=== PATIENT | female | born 1965 | race Caucasian/White ===

== ENCOUNTER 2024-06-04 09:40 | Outpatient (AMB) | payer OTHER, SELFPAY ==
--- NOTE | 2024-06-04 09:51 | A.OFFPC_ITS ---
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 Required: No Allergies No Known Allergies Allergy (Verified 06/04/24 09:51) Medication List - Last Reconciled 06/04/24 by Bridgette Del Valle MD atenolol mg PO DAILY glatiramer (Glatopa) mg subcut Tobacco use date assessed: 06/04/24 Dental Screening Dental Screen Date: 06/04/24 Did you have a dental visit in the last 12 months?: No Did you have a dental problem in the last 6 months where you did not have access to dental care?: No Was dental information given to patient?: Patient has dentist HPI HPI Comments History of Present Illness Details The patient is a 58 year old female with past medical history of hypertension, MS, elevated glucose presenting for reestablish care/follow up CV: on metoprolol 50mg daily for years switched to atenolol. She ran out of her medication in the transition between practices. She has been monitoring her BP at home off the medication and it has been 120s/80s, sometimes low 90s. No heaadches, chest pain. Interested in GLP MS: Following with Dr Alves. On Glatopa. 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 elevated LFTs in setting of norethindrone. Needs new [employer] Mammo ordered Colon cancer screening UTD ROS CONSTITUTIONAL: Denies weight loss, fever and chills. HEENT: Denies changes in vision and hearing. RESPIRATORY: Denies SOB and cough. CV: Denies palpitations and CP GI: Denies abdominal pain, nausea, vomiting and diarrhea. : Denies dysuria and urinary frequency. MSK: Denies new myalgia and joint pain. SKIN: Denies rash and pruritus. NEUROLOGICAL: Denies headache PSYCHIATRIC: Denies recent changes in mood. PHYSICAL EXAM: GENERAL: Alert and oriented x 3. NAD EYES: EOMI. Anicteric. HENT: Moist mucous membranes. No scleral icterus. No cervical lymphadenopathy. LUNGS: Clear to auscultation bilaterally. CARDIOVASCULAR: Regular rate and rhythm. No murmur. No JVD. ABDOMEN: Soft, non-tender +bs EXTREMITIES: No edema. Non-tender. SKIN: No rashes or lesions. Warm. NEUROLOGIC: No focal neurological deficits. CN II-XII grossly intact PSYCHIATRIC: Cooperative. Appropriate mood and affect [facility] Surgical History History of hysteroscopy H/O colonoscopy Hx of section Family History Mother HTN (hypertension) Father Lung cancer Diabetes Social History Housing: House Alcohol intake: current Patient Tobacco Use Status: Never used Tobacco e-Cigarette/Vaping Use: Never Used Second Hand Smoke Exposure: No Use of substances other than those prescribed or required for medical reasons: No service: No Current occupational status: employed Current occupation: [employer] Current occupational exposures/hazards: No Cognitive needs: No Hearing needs: No Vision needs: No Questionnaire PHQ-9 Over the last 2 weeks, how often have you been bothered by any of the following problems? 1. Little interest or pleasure in doing things: not at all 2. Feeling down, depressed, or hopeless: not at all 3. Trouble falling or staying asleep, or sleeping too much: not at all 4. Feeling tired or having little energy: not at all 5. Poor appetite or overeating: not at all 6. Feeling bad about yourself - or that you are a failure or have let yourself or your family down: not at all 7. Trouble concentrating on things, such as reading the newspaper or watching television: not at all 8. Moving or speaking so slowly that other people could have noticed. Or the opposite - being so fidgety or restless that you have been moving around a lot more than usual: not at all 9. Thoughts that you would be better off or of hurting yourself in some way: not at all Total score: 0 Depression Screening Interpretation: Negative Depression Screening Done: Yes 63021 - PHQ-9 Billing: Yes Source: Developed by Drs. Hair L. WinifredMeri martin, Nathan Meza and colleagues, with an educational gris from [employer]. Thrive Questionnaire Date Thrive assessed: 05/30/24 I am a: Patient What is your living situation today?: I have a steady place to live Within the past 12 months, did the food you bought not last and you didn't have the money to get more?: Never true Within the past 12 months, did you worry whether your food would run out before you got money to buy more?: Never true Do you have trouble paying for medicines?: No Do you have trouble getting transportation to medical appointments?: No Do you have trouble paying your heating and electricity bill?: No Do you have trouble taking care of your child, family member or friend?: No Do you have trouble with day-to-day activities such as bathing, preparing meals, shopping, managing finances, etc.?: No Are you currently unemployed and looking for a job?: No Are you interested in more education?: I choose not to answer this question Please select the resources that you would like help with: None Currently or been in a relationship where the following occur: No concerns reported THRIVE Score: 0 AUDIT C Alcohol Use Questionnaire (AUDIT-C) 1. How often do you have a drink containing alcohol?: 2-4 times a month 2. How many drinks containing alcohol do you have on a typical day when you are drinking?: 1 or 2 3. How often do you have six or more drinks on one occasion?: Never Total Score: 2 TITUS-7 AMB Questionnaire TITUS-7 Date TITUS - 7 assessed: 06/04/24 Feeling nervous, anxious, or on edge: 0 = Not at all Not being able to stop or control worryin = Not at all Worrying too much about different things: 0 = Not at all Trouble relaxin = Not at all Being so restless that it is hard to sit still: 0 = Not at all Becoming easily annoyed or irritable: 0 = Not at all Feeling afraid as if something awful might happen: 0 = Not at all Total TITUS-7 score (0-4 normal; 5-9 mild; 10-14 moderate; 15-21 severe): 0 Source: Developed by Meri Rivero Kurt Kroenke and colleagues, with an educational gris from [employer]. TITUS-7 Assessment Billing TITUS-7 Assessment Tool: TITUS-7 Assessment 94622 Physical exam (Primary Care) Vital Signs: Last Vital Signs Pulse 81 06/04/24 09:58 Resp 12 06/04/24 09:58 BP 132/84 06/04/24 09:58 Pulse Ox 95 06/04/24 09:58 Oxygen Delivery Method Room Air 06/04/24 09:58 BMI result Body Mass Index 31.5 Tobacco/Smoking Status: Tobacco use Status Tobacco use date assessed 06/04/24 06/04/24 10:01 Patient Tobacco Use Status Never used Tobacco 06/04/24 10:01 e-Cigarette/Vaping Use Never Used 06/04/24 10:01 PHQ-9: PHQ-9 Score PHQ-9: Total score 0 06/04/24 14:23 Depression Screening Interpretation: Negative Thrive Assessment: Date of Thrive Assessment Date Thrive assessed 05/30/24 06/04/24 09:55 Currently or been in a relationship where the following occur: No concerns reported Coding Level of Care Code Est Pt Level 5 (82391) Diagnoses Elevated glucose R73.09 Primary hypertension I10 Hypertension type: primary hypertension Additional Codes TITUS-7 Assessment Billing - TITUS-7 Assessment Tool: TITUS-7 Assessment 90184 ([id number]) PHQ-9 - 90461 - PHQ-9 Billing: Yes ([id number]) Time Spent (min) 50 Assessment & Plan Assessment & Plan (1) Elevated glucose: Code(s): R73.09 - Other abnormal glucose Category: Medical Plan: History of elevated glucose Weight gain Blood perssure is borderline-will try for FLP to aid weight loss. Hopefully she can avoid going back on custodial medications. She will do labs 3-6 months (2) Hypertension: Code(s): I10 - Essential (primary) hypertension Category: Medical Qualifiers: Hypertension type: primary hypertension Qualified Code(s): I10 - Essential (primary) hypertension Plan: Low salt diet Efforts toward weight loss Orders: Orders Comprehensive Met. Panel 06/04/24 R73.09 - Other abnormal glucose, Z13.0 - Encounter for screening for diseases of the blood and blood-forming organs and certain disorders involving the immune mechanism, Z13.220 - Encounter for screening for lipoid disorders, Z13.228 - Encounter for screening for other metabolic disorders MM screening mammo BI 06/04/24 Z12.31 - Encounter for screening mammogram for malignant neoplasm of breast Complete Blood Count Auto Diff 06/04/24 R73.09 - Other abnormal glucose, Z13.0 - Encounter for screening for diseases of the blood and blood-forming organs and certain disorders involving the immune mechanism, Z13.220 - Encounter for screening for lipoid disorders, Z13.228 - Encounter for screening for other metabolic disorders Lipid Panel 06/04/24 R73.09 - Other abnormal glucose, Z13.0 - Encounter for screening for diseases of the blood and blood-forming organs and certain disorders involving the immune mechanism, Z13.220 - Encounter for screening for lipoid disorders, Z13.228 - Encounter for screening for other metabolic disorders TSH reflex Free T4 06/04/24 R73.09 - Other abnormal glucose, Z13.0 - Encounter for screening for diseases of the blood and blood-forming organs and certain disorders involving the immune mechanism, Z13.220 - Encounter for screening for lipoid disorders, Z13.228 - Encounter for screening for other metabolic disorders Hemoglobin A1c 06/04/24 R73.09 - Other abnormal glucose, Z13.0 - Encounter for screening for diseases of the blood and blood-forming organs and certain disorders involving the immune mechanism, Z13.220 - Encounter for screening for lipoid disorders, Z13.228 - Encounter for screening for other metabolic disorders Referrals LEAD NETWORK ARCHITECT Referral D21.9 - Benign neoplasm of connective and other soft tissue, unspecified, Z01.419 - Encounter for gynecological examination (general) (dean ríos) without abnormal findings
[2024-06-04 09:58] VITALS: BP 132/84; PULSE 81; RESP 12; O2SAT 95; BMI 31.5
--- OUTSIDE RECORDS SUMMARY | 2024-06-04 10:59 | XMS_ITS | Data Portability ---
Author Organization [facility] [employer] Address [address] [place] [address] [place] [id number] Care Team Providers Care Silver Chaser Name Role Phone CORY HEBERT Primary Care Provider [phone] Assessment Encounter Date Assessment Date Assessment LastModified by Organization Details LastModified Time 12/01/2020 12/01/2020 IMPRESSION: Mult iple sclerosis, no relapses recently. Diagnosis following probable mild optic neuritis together with the 10 small lesions on brain MRI, including corpus callosum; and a new enhancing lesion November 2012 brain MRI provides definitive evidence for dissemination and time other evidence previously was Spring 2011 episode of sensory alteration under her right foot is the not specific but was very possibly a mild relapse. She remains satisfied with Copaxone injections daily. (Insurance would not allow her to switch to 3 times a week.) Brain MRI is unchanging (we were able to do this October 2015 as her insurance now covers brain MRI in this context of multiple sclerosis without charging a hefty co-pay.) I have offered brain MRI to assess for radiological progression in which case there can be consideration for changing to an alternative disease modifying medication. She declines, feeling that such investigation should be reserved for situations where she has clinical worsening. She continues to be aware of other options for medication, and oral options in particular: fingolimod, Aubagio, Tecfidera, that may be more convenient than shots. Today we discussed ocrelizumab, newer than the above. She again prefers Copaxone. BACK PAIN She is slouches just a little on the exam table where there is no backing to lean on. Neurological exam is otherwise robustly normal. She notices that she sometimes feels uncomfortable if she is sitting in a situation where there is no chairback. She just gets up and walks around. I wonder if this relates to the acute denervation seen in paraspinal muscles on needle EMG. I wonder if her back pain in part relates this to. 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 She will think about this. VITAMIN D: Primary care has checked vitamin D in 2018, it was good; she takes supplementation. In the context of multiple sclerosis, there is a tendency for it to be low and there is some emerging data that suggests this may correlate with some symptomaticity. Today she mentions that vitamin D monitoring by primary care revealed higher than normal results. She has not talked about it with primary care. I tell her that I see that sometimes and I am not concerned about it when it is mildly high. Although it is a fat soluble vitamin, I know of no worrisome issues for mild increased value if there is normal kidney function. I defer to primary care for any further assessment needed. EMG in November 2010 showed diffuse paraspinal muscle acute denervation, and a few small units. This is consistent with inflammatory systemic disease. Subsequent laboratory assays reveal impaired fasting glucose. While this is not diabetes, there is data in the literature that impaired fasting glucose, as well as glucose intolerance, has correlation with signs and symptoms of radiculoneuropathy such as these signs on needle EMG. Multiple sclerosis is an inflammatory disease itself, of course, but traditionally considered a central nervous system disease, not a systemic disease. However, inflammation of nerve root takeoff in the central nervous system from multiple sclerosis might also, theoretically, related to the needle EMG results, although this is not typical of findings multiple sclerosis. No further workup of needle EMG abnormalities is indicated. PLAN: Mildred Yuen December 01, 2020 Continue Copaxone shots daily for multiple sclerosis Stretch back before and after unusual physical activity or lifting heavy objects. Followup in 11 months, or earlier with new or concerning neurologic symptomatology mrossen Not available 12/01/2020 09:36:29 12/02/2021 12/02/2021 IMPRESSION: Mult iple sclerosis, no relapses recently. Diagnosis following probable mild optic neuritis together with the 10 small lesions on brain MRI, including corpus callosum; and a new enhancing lesion November 2012 brain MRI provides definitive evidence for dissemination and time other evidence previously was Spring 2011 episode of sensory alteration under her right foot is the not specific but was very possibly a mild relapse. She remains satisfied with Copaxone injections daily. (Insurance would not allow her to switch to 3 times a week.) Brain MRI is unchanging (we were able to do this October 2015 as her insurance now covers brain MRI in this context of multiple sclerosis without charging a hefty co-pay.) I have offered brain MRI to assess for radiological progression in which case there can be consideration for changing to an alternative disease modifying medication. She declines, feeling that such investigation should be reserved for situations where she has clinical worsening. She continues to be aware of other options for medication, and oral options in particular: fingolimod, Aubagio, Tecfidera, that may be more convenient than shots. Most recently we have discussed ocrelizumab In detail and she had the same opinion; She again prefers Copaxone. this was November 2020. We briefly discussed ocrelizumab again today. BACK PAIN November 2020: She is slouches just a little on the exam table where there is no backing to lean on. Neurological exam is otherwise robustly normal. She notices that she sometimes feels uncomfortable if she is sitting in a situation where there is no chairback. She just gets up and walks around. I wonder if this relates to the acute denervation seen in paraspinal muscles on needle EMG. I wonder if her back pain in part relates this to. 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 She will think about this. VITAMIN D: Primary care has checked vitamin D in 2018, it was good; she takes supplementation. In the context of multiple sclerosis, there is a tendency for it to be low and there is some emerging data that suggests this may correlate with some symptomaticity. Today she mentions that vitamin D monitoring by primary care revealed higher than normal results. She has not talked about it with primary care. I tell her that I see that sometimes and I am not concerned about it when it is mildly high. Although it is a fat soluble vitamin, I know of no worrisome issues for mild increased value if there is normal kidney function. I defer to primary care for any further assessment needed. EMG in November 2010 showed diffuse paraspinal muscle acute denervation, and a few small units. This is consistent with inflammatory systemic disease. Subsequent laboratory assays reveal impaired fasting glucose. While this is not diabetes, there is data in the literature that impaired fasting glucose, as well as glucose intolerance, has correlation with signs and symptoms of radiculoneuropathy such as these signs on needle EMG. Multiple sclerosis is an inflammatory disease itself, of course, but traditionally considered a central nervous system disease, not a systemic disease. However, inflammation of nerve root takeoff in the central nervous system from multiple sclerosis might also, theoretically, related to the needle EMG results, although this is not typical of findings multiple sclerosis. No further workup of needle EMG abnormalities is indicated. PLAN: Mildred Yuen December 02, 2021 Continue Copaxone shots daily for multiple sclerosis Stretch back before and after unusual physical activity or lifting heavy objects. Followup in 10 months, or earlier with new or concerning neurologic symptomatology mrossen Not available 12/02/2021 09:04:37 10/24/2022 10/24/2022 IMPRESSION: Mult iple sclerosis, no relapses recently. Diagnosis following probable mild optic neuritis together with the 10 small lesions on brain MRI, including corpus callosum; and a new enhancing lesion November 2012 brain MRI provides definitive evidence for dissemination and time other evidence previously was Spring 2011 episode of sensory alteration under her right foot is the not specific but was very possibly a mild relapse. She remains satisfied with Copaxone injections daily. (Insurance would not allow her to switch to 3 times a week.) Brain MRI is unchanging (we were able to do this October 2015 as her insurance now covers brain MRI in this context of multiple sclerosis without charging a hefty co-pay.) I have offered brain MRI to assess for radiological progression in which case there can be consideration for changing to an alternative disease modifying medication. She declines, feeling that such investigation should be reserved for situations where she has clinical worsening. She continues to be aware of other options for medication, and oral options in particular: Ocrevus, Aubagio, Tecfidera, that may be more convenient than shots. In paticular, most recently we have discussed ocrelizumab In detail and she had the same opinion; She again prefers Copaxone. this was December2021. BACK PAIN November 2020: She is slouches just a little on the exam table where there is no backing to lean on. Neurological exam is otherwise robustly normal. She notices that she sometimes feels uncomfortable if she is sitting in a situation where there is no chairback. She just gets up and walks around. I wonder if this relates to the acute denervation seen in paraspinal muscles on needle EMG. I wonder if her back pain in part relates this to. 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 She will think about this. VITAMIN D: Primary care has checked vitamin D in 2018, it was good; she takes supplementation. In the context of multiple sclerosis, there is a tendency for it to be low and there is some emerging data that suggests this may correlate with some symptomaticity. Today she mentions that vitamin D monitoring by primary care revealed higher than normal results. She has not talked about it with primary care. I tell her that I see that sometimes and I am not concerned about it when it is mildly high. Although it is a fat soluble vitamin, I know of no worrisome issues for mild increased value if there is normal kidney function. I defer to primary care for any further assessment needed. EMG in November 2010 showed diffuse paraspinal muscle acute denervation, and a few small units. This is consistent with inflammatory systemic disease. Subsequent laboratory assays reveal impaired fasting glucose. While this is not diabetes, there is data in the literature that impaired fasting glucose, as well as glucose intolerance, has correlation with signs and symptoms of radiculoneuropathy such as these signs on needle EMG. Multiple sclerosis is an inflammatory disease itself, of course, but traditionally considered a central nervous system disease, not a systemic disease. However, inflammation of nerve root takeoff in the central nervous system from multiple sclerosis might also, theoretically, related to the needle EMG results, although this is not typical of findings multiple sclerosis. No further workup of needle EMG abnormalities is indicated. PLAN: Mildred Yuen October 24, 2022 Continue Copaxone shots daily for multiple sclerosis Stretch back before and after unusual physical activity or lifting heavy objects. Followup in 10 months, or earlier with new or concerning neurologic symptomatology mrossen Not available 10/24/2022 08:16:26 10/03/2023 10/03/2023 IMPRESSION: Mult iple sclerosis, no relapses recently. Diagnosis following probable mild optic neuritis together with the 10 small lesions on brain MRI, including corpus callosum; and a new enhancing lesion November 2012 brain MRI provides definitive evidence for dissemination and time other evidence previously was Spring 2011 episode of sensory alteration under her right foot is the not specific but was very possibly a mild relapse. She remains satisfied with Copaxone injections daily. (Insurance would not allow her to switch to 3 times a week.) Brain MRI is unchanging (we were able to do this October 2015 as her insurance now covers brain MRI in this context of multiple sclerosis without charging a hefty co-pay.) I have offered brain MRI to assess for radiological progression in which case there can be consideration for changing to an alternative disease modifying medication. She has declined, feeling that such investigation should be reserved for situations where she has clinical worsening. She continues to be aware of other options for medication, and oral options in particular: Ocrevus, Aubagio, Tecfidera, that may be more convenient than shots. In patilar, most recently we have discussed ocrelizumab In detail and she had the same opinion; She again prefers Copaxone. this was December2021. PLAN: Mildred Yuen October 03, 2023 Continue Copaxone shots daily for multiple sclerosis Stretch back before and after unusual physical activity or lifting heavy objects. Followup in 11 months, or earlier with new or concerning neurologic symptomatology mrossen Not available 10/03/2023 17:40:57 Plan of Treatment Reminders Order Date Submit Date Provider Last Modified By Organization Details Last Modified Time Details Appointments FOLLOW UP EXT 2024 08:30A M Frank Alves MD PhD Not available Not available Not available Lab None recorded. Referral None recorded. Procedures None recorded. Surgeries None recorded. Imaging None recorded. Medication Orders Glatopa 20 mg/mL subcutane ous syringe 2023 024 [facility] [place], [address], 10/03/2023 17:29:48 Glatopa 20 mg/mL subcutane ous syringe 2022 023 [facility], [address] [place] [address] [place], [address], 10/24/2022 08:17:09 Glatopa 20 mg/mL subcutane ous syringe 2020 021 [facility], [address] [place], [address], 12/01/2020 09:19:21 Patient TargetsNo targets recorded. Patient Instructions Encounter Date Encounter Id Patient Instructions Last Modified By Organization Details Last Modified Time 12/01/2020 [id number] PREVIOUS DISCUSS IONS She has wondered about vaccinations causing multiple sclerosis. I told her this is not the case. dalila Not available 12/01/2020 09:31:52 12/02/2021 [id number] PREVIOUS DISCUSS IONS She has wondered about vaccinations causing multiple sclerosis. I told her this is not the case. BILLING Chronic condition with exacerbation; prescription medication management dalila Not available 12/02/2021 08:45:28 10/24/2022 [id number] PREVIOUS DISCUSS IONS She has wondered about vaccinations causing multiple sclerosis. I told her this is not the case. BILLING Discussion across issues of diagnoses and management and same day associated chart review and management greater than 50% greater than 30 minutes dalila Not available 10/24/2022 08:26:05 10/03/2023 [id number] PREVIOUS DISCUSS IONS She has wondered about vaccinations causing multiple sclerosis. I told her this is not the case. BACK PAIN November 2020: She is slouches just a little on the exam table where there is no backing to lean on. Neurological exam is otherwise robustly normal. She notices that she sometimes feels uncomfortable if she is sitting in a situation where there is no chairback. She just gets up and walks around. I wonder if this relates to the acute denervation seen in paraspinal muscles on needle EMG. I wonder if her back pain in part relates this to. 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 She will think about this. VITAMIN D: Primary care has checked vitamin D in 2018, it was good; she takes supplementation. In the context of multiple sclerosis, there is a tendency for it to be low and there is some emerging data that suggests this may correlate with some symptomaticity. Today she mentions that vitamin D monitoring by primary care revealed higher than normal results. She has not talked about it with primary care. I tell her that I see that sometimes and I am not concerned about it when it is mildly high. Although it is a fat soluble vitamin, I know of no worrisome issues for mild increased value if there is normal kidney function. I defer to primary care for any further assessment needed. EMG in November 2010 showed diffuse paraspinal muscle acute denervation, and a few small units. This is consistent with inflammatory systemic disease. Subsequent laboratory assays reveal impaired fasting glucose. While this is not diabetes, there is data in the literature that impaired fasting glucose, as well as glucose intolerance, has correlation with signs and symptoms of radiculoneuropathy such as these signs on needle EMG. Multiple sclerosis is an inflammatory disease itself, of course, but traditionally considered a central nervous system disease, not a systemic disease. However, inflammation of nerve root takeoff in the central nervous system from multiple sclerosis might also, theoretically, related to the needle EMG results, although this is not typical of findings multiple sclerosis. No further workup of needle EMG abnormalities is indicated. BILLING Discussion across issues of diagnoses and management and same day associated chart review and management greater than 50% greater than 30 minutes mrossen Not available 10/03/2023 17:40:37 Reason for Referral None Reported. Procedures Surgical History Date Name Laterality Status Provider Name and Address Organization Details Recorded Time 10/03/2023 DATA REVIEW completed Frank Alves MD [address] [place] [address] [place], [phone], [facility] 10/03/2023 17:22:48 10/24/2022 DATA REVIEW completed Frank Alves MD [address] [place] [address] [place], [phone], [facility] 10/24/2022 08:08:15 12/02/2021 DATA REVIEW completed Frank Alves MD [address] [place] [address] [place], [phone], [facility] [facility] 12/02/2021 08:43:57 12/01/2020 DATA REVIEW completed Frank Alves MD [address] [place] [address] [place], [phone], [facility] 12/01/2020 09:08:32 Imaging Results None recorded. Procedure Notes None recorded. Medical Equipment None Reported. Medications Name Sig Start Date Stop Date Status Note LastModified by Organization Details LastModified Time Prescription - Prior Authorizatio n Request active Not Available Not Available No t Available metoprolol succinate ER 50 mg tablet,exten ded release 24 hr TAKE 1 TABLET BY MOUTH EVERY DAY active Not Available Not Available No t Available cephalexin 500 mg capsule TAKE 1 CAPSULE BY MOUTH TWICE A DAY FOR 7 DAYS active Not Available Not Available No t Available norethindron e acetate 5 mg tablet TAKE 1 TABLET BY MOUTH TWICE A DAY active Not Available Not Available No t Available atenolol 50 mg tablet TAKE 1 TABLET BY MOUTH EVERY DAY active Not Available Not Available No t Available Glatopa 20 mg/mL subcutaneous syringe Inject 1 mL every day by subcutaneou s route for 30 days. active Not Available Not Available No t Available Flowflex COVID-19 Antigen Home Test kit active Not Available Not Available Not Available Vitals Date Recorded Body height Body mass index (BMI) Body weight Provider Name and Address Organization Details Last Updated DateTime 08/10/2022 172.72 cm 5.5 kg/m2 39195.33 g Jane Kumar [facility] 08/11/2022 11:11:57 Social History None recorded. Functional Status None recorded. Mental Status None recorded. Family History Nothing Reported. Medical History No medical history recorded. Gynecological HistoryNo gynecological history recorded. Obstetrics History GPAL:G 0 P 0 0 0 0 Past Encounters Encounter ID Performer Location Encounter Start Date Encounter Closed Date Diagnosis/Indication Diagnosis SNOMED-CT Code Diagnosis ICD10 Code Diagnosis Note [id number] Frank Alves MD [address] [place] [address] 12/01/2020 08:51:13 12/01/2020 09:40:07 Multiple sclerosis 41268951 G35 [id number] Frank Alves MD [address] [place] [address] 12/02/2021 08:22:41 12/02/2021 09:45:46 Multiple sclerosis 09313954 G35 [id number] Frank Alves MD [address] [place] [address] 10/24/2022 08:01:07 10/24/2022 08:51:11 Multiple sclerosis [id number] G35 [id number] Frank Alves MD [facility] [address] [place] [address] [place] [address] 10/03/2023 16:27:14 10/09/2023 10:44:24 Multiple sclerosis 85088177 G35 Health Concerns Section Related Observation LastModified by Organization Detai ls LastModified Time None Recorded Concern Status LastModified by Organization Details LastModified Time None Recorded Advance Directives Directive None Recorded Payers Encounter Date Sequence Insurance Name Policy Number Policy Bradford Covered Member ID Bradford Member ID Guarantor Name 12/01/2020 1 [place] [facility] [employer] [place] ([facility]) [id number] Mildred K Szpak [id number] Mildred K Szpak 12/02/2021 1 [place] [facility] [employer] [place] (O) [id number] Mildred K Szpak [id number] Mildred K Szpak 10/24/2022 1 [employer] (E[employer]) [id number] Mildred K Szpak [id number] Mildred K Szpak 10/03/2023 1 [employer] ([place]PO) [id number] Mildred K Szpak [id number] Mildred K Szpak Notes Date Note Type Note Provider Name and Address Organization Details Recorded Time 12/01/2020 text/html The patient retu rns for follow up of her multiple sclerosis. Since most recent neurology follow-up encounter, November 21, 2019, just over 1 year ago, she again feels that nothing has changed from the perspective of multiple sclerosis or more generally. Her energy still fluctuates from day-to-day but she feels able to manage this, even on the less energetic days. She continues without relapse--no episodes lasting days to months of focal numbness or sensory change, weakness, gait abnormality without injury, monocular vision loss, double vision, or unexplained bladder or bowel dyscontrol. She has no new diagnoses or medication changes with primary care or other healthcare providers. Her long history of back pain has not been bothering her? s he has not noticed it in recent times. She still occasionally gets back pain if she is active all day. But if she gets a good night rest it is gone by the morning. She tries to do stretching but does not remember to do that all the time before exercise. She notes that she had a 3-hour climb up and a 1.5-hour descent of [employer] in [facility] without any ill effects on a recent family vacation. Her mood is good even in the context of the dan virus epidemic. 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 Initial symptomatology was reviewed from September 29, 2010 consultation:At the end of September 2010, 2 weeks ago, she had onset over a day and of reduced vision in her right eye. It was cloudy but she could still see. At the same time, she had intermittent vibrating feeling in her left leg when she walks. She went to the director web and optic neuritiswas diagnosed. 3 days of Solu-Medrol, 1 g per day in was prescribed after Dr. Pizano and I discussed the case over the phone. At initial consultation, the patient reported that by the second day of Solu-Medrol, her vision began to clear. Currently, it is pretty much better. The vibrating feeling in her left leg still occurs intermittently. Several months ago, while skiing, she noticed that she had a feeling underneath her toes of her right foot that something was there. When she took the boot off there was nothing there. Since then, occasionally when she wears a ski boot or other footwear, she noticed is here. Otherwise, she has had no transient and/or focal episodes of neurologic symptomatology previously, such as previous monocular loss of vision, or in general double vision, focal weakness, gait imbalance, or bowel/bladder dyscontrol. She has had no new rashes or new joint pain. Frank Alves MD [address] [place] [address] [place], [phone], [facility] 12/01/2020 09:37:44 12/02/2021 text/html The patient retu rns for follow up of her multiple sclerosis. She is unaccompanied. Since December 01, 2020 neurology follow-up encounter, just over 1 year ago, She again feels that nothing is changed from the perspective of multiple sclerosis. Her energy fluctuates from day-to-day, but nothing so that she does not get up and pursue daily activities in her normal fashion. She continues without relapse--no episodes lasting days to months of focal numbness or sensory change, weakness, gait abnormality without injury, monocular vision loss, double vision, or unexplained bladder or bowel dyscontrol. She has no new diagnoses or medication changes with primary care or other healthcare providers.Her long history of back pain has not been bothering her? s he has not noticed it in recent times, including during her recent family vacation. This was more relaxing than the year before when they climbed [employer] in [facility], after which her back had no ill effects. She is planning on a little more hiking later this year when it gets cooler. Her 14-year-old daughter and her remain in good health. Initial symptomatology was reviewed from September 29, 2010 consultation:At the end of September 2010, 2 weeks ago, she had onset over a day and of reduced vision in her right eye. It was cloudy but she could still see. At the same time, she had intermittent vibrating feeling in her left leg when she walks. She went to the director web and optic neuritiswas diagnosed. 3 days of Solu-Medrol, 1 g per day in was prescribed after Dr. Pizano and I discussed the case over the phone. At initial consultation, the patient reported that by the second day of Solu-Medrol, her vision began to clear. Currently, it is pretty much better. The vibrating feeling in her left leg still occurs intermittently. Several months ago, while skiing, she noticed that she had a feeling underneath her toes of her right foot that something was there. When she took the boot off there was nothing there. Since then, occasionally when she wears a ski boot or other footwear, she noticed is here. Otherwise, she has had no transient and/or focal episodes of neurologic symptomatology previously, such as previous monocular loss of vision, or in general double vision, focal weakness, gait imbalance, or bowel/bladder dyscontrol. She has had no new rashes or new joint pain. Frank Alves MD [address] [place] [address] [place], [phone], [place] [facility] 12/02/2021 09:04:49 10/24/2022 text/html The patient retu rns for follow up of her multiple sclerosis. She is unaccompanied. Since December 02, 2021 neurology follow-up encounter, she again feels that she is doing well. Nothing has changed from the perspective of multiple sclerosis. He continues on Paxil daily without any side effects for multiple sclerosis disease modifying medication. She continues without relapse--no episodes lasting days to months of focal numbness or sensory change, weakness, gait abnormality without injury, monocular vision loss, double vision, or unexplained bladder or bowel dyscontrol. She has had new gynecological issues. She may be going into menopause. She has had some return of polyps in her uterus for which she had surgery in the past. Surgery is planned in a few months. Otherwise, she has had no new diagnoses or medical changes with other healthcare providers.Her energy has improved. She attributes this to a low carbohydrate/sugar diet and losing 20 to 30 pounds. This has also helped her back pain. It not worsened in any case, but she still had occasionally noticed it with any heavy work, such as in the yard. Now she can do that without any transient back pain afterwards.Her family again remains in good health, her 13-year-old daughter and her . 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 She likes being in the office at least part of the time are all she gets depressed. Since COVID pandemic situation has been over, she has returned to the office 3 to 5 days. 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 Initial symptomatology was reviewed from September 29, 2010 consultation:At the end of September 2010, 2 weeks ago, she had onset over a day and of reduced vision in her right eye. It was cloudy but she could still see. At the same time, she had intermittent vibrating feeling in her left leg when she walks. She went to the director web and optic neuritiswas diagnosed. 3 days of Solu-Medrol, 1 g per day in was prescribed after Dr. Pizano and I discussed the case over the phone. At initial consultation, the patient reported that by the second day of Solu-Medrol, her vision began to clear. Currently, it is pretty much better. The vibrating feeling in her left leg still occurs intermittently. Several months ago, while skiing, she noticed that she had a feeling underneath her toes of her right foot that something was there. When she took the boot off there was nothing there. Since then, occasionally when she wears a ski boot or other footwear, she noticed is here. Otherwise, she has had no transient and/or focal episodes of neurologic symptomatology previously, such as previous monocular loss of vision, or in general double vision, focal weakness, gait imbalance, or bowel/bladder dyscontrol. She has had no new rashes or new joint pain. Frank Alves MD [address] [place] [address] [place], [phone], [facility] 10/24/2022 08:26:22 10/03/2023 text/html The patient retu rns for follow up of her multiple sclerosis. She is unaccompanied. Since October 24, 2022 Neurology follow-up encounter, she is doing even better than last year. She has lost yet another 30 pounds and now has no back pain at all, including when she does gardening work.She is still has had no change from the perspective of multiple sclerosis, no relapse. She continues on Copaxone without any side effects as multiple sclerosis disease modifying therapy.Her gynecological issues that emerged last year turned out to be uterine polyps and she had successful surgery for these December 2022. Her blood pressure control became suboptimal but improved with primary care switching from metoprolol to atenolol. There have been no other medication changes or medical issues.Her and 14-year-old daughter are doing well and healthy. 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 >>>>>>>>>>>>October 24, 2022Since October 24, 2022 Neurology follow-up encounter, she is doing even better than last year. She is still has had no change from the perspective of multiple sclerosis, no relapse. She continues on Copaxone without any side effects as multiple sclerosis disease modifying therapy.Her gynecological issues that emerged last year turned out to be uterine polyps and she had successful surgery for these December 2022. Her blood pressure control became suboptimal but improved with primary care switching from metoprolol to atenolol. There have been no other medication changes or medical issues.Her and 14-year-old daughter are doing well and healthy. 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 Since December 02, 2021 neurology follow-up encounter, she again feels that she is doing well. Nothing has changed from the perspective of multiple sclerosis. He continues on Paxil daily without any side effects for multiple sclerosis disease modifying medication. She continues without relapse--no episodes lasting days to months of focal numbness or sensory change, weakness, gait abnormality without injury, monocular vision loss, double vision, or unexplained bladder or bowel dyscontrol. She has had new gynecological issues. She may be going into menopause. She has had some return of polyps in her uterus for which she had surgery in the past. Surgery is planned in a few months. Otherwise, she has had no new diagnoses or medical changes with other healthcare providers.Her energy has improved. She attributes this to a low carbohydrate/sugar diet and losing 20 to 30 pounds. This has also helped her back pain. It not worsened in any case, but she still had occasionally noticed it with any heavy work, such as in the yard. Now she can do that without any transient back pain afterwards.Her family again remains in good health, her 13-year-old daughter and her . 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 She likes being in the office at least part of the time are all she gets depressed. Since COVID pandemic situation has been over, she has returned to the office 3 to 5 days. 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 Initial symptomatology was reviewed from September 29, 2010 consultation:At the end of September 2010, 2 weeks ago, she had onset over a day and of reduced vision in her right eye. It was cloudy but she could still see. At the same time, she had intermittent vibrating feeling in her left leg when she walks. She went to the director web and optic neuritiswas diagnosed. 3 days of Solu-Medrol, 1 g per day in was prescribed after Dr. Pizano and I discussed the case over the phone. At initial consultation, the patient reported that by the second day of Solu-Medrol, her vision began to clear. Currently, it is pretty much better. The vibrating feeling in her left leg still occurs intermittently. Several months ago, while skiing, she noticed that she had a feeling underneath her toes of her right foot that something was there. When she took the boot off there was nothing there. Since then, occasionally when she wears a ski boot or other footwear, she noticed is here. Otherwise, she has had no transient and/or focal episodes of neurologic symptomatology previously, such as previous monocular loss of vision, or in general double vision, focal weakness, gait imbalance, or bowel/bladder dyscontrol. She has had no new rashes or new joint pain. Frank Alves MD [address] [place], [place] [address], [phone], [facility] 10/03/2023 17:41:10 OBGyn Episode No OBEpisode recorded.
--- OUTSIDE RECORDS SUMMARY | 2024-06-04 10:59 | XMS_ITS | Clinical Summary ---
Author Organization [facility] Address [address] [id number] Care Team Providers Care Ultrasound Technologist Sonographer Name Role Phone Moe Sanches MD Primary Care Provider [phone] Moe Sanches MD Unavailable [phone] Medications Glatiramer Acetate (Copaxone) 20 MG/ML Solution Prefilled Syringe INJECT 1 PREFILLED SYRINGE SUBCUTANEOUSLY DAILY . 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/29/2009 Overview (05/07/2023): Description: awaiting report Elevated antibody levels 09/29/2009 Overview (05/07/2023): Description: JAYLA Generalized skin tumors 09/29/2009 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 Immunizations Name Administration Dates Next Due Td (adult), adsorbed 10/23/2007,10/23/2007,06/28 Family History Medical History Relation Name Comments Hypertension Mother Hypertension : Mother Relation Name Status Comments Mother Social History Tobacco Use Types Packs/Day Years Used Date Smoking Tobacco: Never Assessed Comments:Smoking Status:Justyn hawley smoker:Transitioned From: Smoking Cigarettes For ____ Pack-years Comments Unknown Sex and Gender Information Value Date Recorded Sex Assigned at Not on file Legal Sex Female 6:19 PM EDT Gender Identity Not on file Sexual Orientation Not on file Last Filed Vital Signs Vital Sign Reading Time Taken Comments Blood Pressure 140/86 04/13/2011 4:21 PM EST RUE/Sitting RUE/Sitting Pulse 75 04/13/2011 4:07 PM EST Temperature 36.4 ??C (97.5 ??F) 04/13/2011 4 :07 PM EST Tympanic Respiratory Rate 20 04/13/2011 4:07 PM EST Oxygen Saturation - - Inhaled Oxygen Concentration - - Weight 106 kg (233 lb 0.1 oz) 04/13/2011 4:07 PM EST Height 170.6 cm (5' 7.15 ) 04/13/2011 4 :07 PM EST Body Mass Index 36.33 04/13/2011 4:07 PM EST Plan of Treatment Health Maintenance Due Date Last Done Comments Hepatitis C Screening 1967 Pap Smear 1983 Hep B (1 of 3 - 19+ 3-dose series) 09/23/1986 Mammogram/Breast Imaging 2007 DTaP/Tdap/Td (1 - Tdap) 10/24/2007 10/23/19 08, 10/23/2007, 06/28/2005 Pneumococcal 50+ years (1 of 1 - PCV) 09/23/2017 Zoster (Shingrix) (1 of 2) 09/23/2017 COVID-19 Vaccine (2023-2 5 season) 2023 Influenza (#1) 2023 HPV Vaccine Aged Out No longer eligi ble based on patient's age to complete this topic Hep A Aged Out No longer eligi ble based on patient's age to complete this topic Hib Aged Out No longer eligi ble based on patient's age to complete this topic Meningococcal ACWY Aged Out No longer eligible based on patient's age to complete this topic Care Teams Ultrasound Technologist Sonographer Relationship Specialty Start Date End Date Moe Sanches MD [address] [place] [address] PCP - General 11/07/22 Moe Sanches MD [address] [place] [address] PCP - Backup PCP Internal Medicine 05/04/23
== END 2024-06-04 10:37 | disposition home or self-care (01) ==
PROVIDERS: PCP Internal Medicine; Visit Provider Internal Medicine
DX: R73.09 Other abnormal glucose (principal); I10 Essential (primary) hypertension

== ENCOUNTER → 2024-06-04 09:40 | Outpatient (BNVA) | payer OTHER, SELFPAY | PROVIDERS: PCP Internal Medicine; Visit Provider Internal Medicine | DX: R73.09 Other abnormal glucose (principal); I10 Essential (primary) hypertension | CPT/HCPCS: 96127 ==

== ENCOUNTER 2024-06-04 10:41 | Outpatient (REF) | payer OTHER, SELFPAY ==
--- OUTSIDE RECORDS SUMMARY | 2024-06-04 13:03 | XMS_ITS | Clinical Summary ---
Author Organization [facility] Address [address] [id number] Care Team Providers Care Carpenter Prototype Name Role Phone Moe Sanches MD Primary Care Provider [phone] Moe Sanches MD Unavailable [phone] Medications Glatiramer Acetate (Copaxone) 20 MG/ML Solution [...] Elevated antibody levels 09/29/2009 Overview (05/07/2023): Description: JYALA Generalized skin tumors 09/29/2009 Methylenetetrahydrofolate reductase deficiency [...] age to complete this topic Care Teams Carpenter Prototype Relationship Specialty Start Date End Date Moe Sanches MD [address] [place] [address] PCP - General 11/07/22 Moe Sanches MD [address] [place] [address] PCP - Backup PCP Internal Medicine 05/04/23
[2024-06-04 14:41] LABS: Alanine Aminotransferase 28 U/L (0-31); Albumin Level 4.5 g/dL (3.5-5.0); Alkaline Phosphatase 58 U/L (39-117); Anion Gap 12 (12-20); Aspartate Amino Transferase 27 U/L (5-31); Bilirubin Total 0.5 mg/dL (0.0-1.0); Blood Urea Nitrogen 10 mg/dL (9-16); Calcium 9.3 mg/dL (8.4-10.2); Carbon Dioxide 29 mmol/L (22-29); Chloride 106 mmol/L (96-108); Cholesterol 178 mg/dL (<200); Estimated Glomerular Filt Rate > 60; Glucose Random 95 mg/dL (60-115); HDL Cholesterol 68 mg/dL (>40); LDL Cholesterol Calculated 97 mg/dL (<100); Potassium 4.5 mmol/L (3.3-5.1); Sodium 142 mmol/L (135-145); Total Protein 7.6 g/dL (6.5-8.0); Triglycerides 65 mg/dL (<150)
[2024-06-04 15:29] LABS: Estimated Average Glucose 100 mg/dL; Hemoglobin A1c % 5.1 % (<6.0); Total Hemoglobin (HGBA1C) 3732.0077 umol/L
[2024-06-04 22:19] LABS: MANUAL DIFF FLAG NO
[2024-06-04 22:21] LABS: Basophils Percent Auto 0.5 % (0-2); Eosinophils Absolute Auto 0.1 X10*3/uL (0.0-0.4); Eosinophils Percent Auto 1.2 % (0-4); Hematocrit 42.8 % (37.0-47.0); Hemoglobin 14.5 g/dl (12.0-16.0); Imm Gran Abs Auto 0.02 X10*3/uL (0.00-0.03); Imm Gran Pct Auto 0.3 % (0.0-0.4); Lymphocytes Absolute Auto 2.1 X10*3/uL (1.2-4.9); Lymphocytes Percent Auto 36.7 % (20-40); Mean Corpuscular HGB Conc 33.9 g/dl (31.0-35.0); Mean Corpuscular Hemoglobin 28.9 pg (27.0-33.0); Mean Corpuscular Volume 85.3 fL (80.0-98.0); Mean Platelet Volume 9.9 fL (9.4-12.3); Monocytes Absolute Auto 0.4 X10*3/uL (0.1-1.2); Neutrophils Absolute Auto 3.1 x10*3/uL (2.0-8.3); Neutrophils Percent Auto 54.3 % (45-73); Platelet Count 239 X10*3/uL (160-400); Red Blood Count 5.02 X10*6/uL (4.20-5.50); Red Cell Distribution Width 12.2 % (11.0-16.0); White Blood Count 5.7 X10*3/uL (4.8-10.8)
== END 2024-06-04 10:42 | disposition home or self-care (01) ==
LOC: HO.WFDLDS 10:41
PROVIDERS: Visit Provider Internal Medicine
DX: R73.09 Other abnormal glucose (principal); Z13.0 Encounter for screening for diseases of the blood and blood-forming organs and certain disorders involving the immune mechanism; Z13.220 Encounter for screening for lipoid disorders; Z13.228 Encounter for screening for other metabolic disorders; Z13.29 Encounter for screening for other suspected endocrine disorder
CPT/HCPCS: 36415; 80053; 80061; 83036; 84443; 85025

== ENCOUNTER 2024-09-09 09:34 | Outpatient (AMB) | payer OTHER, SELFPAY ==
--- NOTE | 2024-09-09 09:36 | MHC.PC.OV ---
Vital Signs 09/09/24 09:41 Height 5 ft 6.93 in Weight 207 lb 8 oz BMI 32.6 BP 124/82 Blood Pressure Location Lt brachial Position Sitting Respiration 14 Pulse 61 Pulse Source Pulse Oximeter Temp 97.8 F Temp Source Oral Pulse Oximetry (%) 98 Oxygen Delivery Method Room Air Intake Visit Reasons: bp follow up Intake Note: Blood pressure follow up Safety And Skill Based Pay Manager Required: No Allergies No Known Allergies Allergy (Verified 09/09/24 09:37) Tobacco use date assessed: 09/09/24 Dental Screening Dental Screen Date: 06/04/24 Did you have a dental visit in the last 12 months?: No Did you have a dental problem in the last 6 months where you did not have access to dental care?: No Was dental information given to patient?: Patient has dentist HPI HPI Comments History of Present Illness Details The patient is a 58 year old female with past medical history of hypertension, MS, elevated glucose presenting for follow up CV: Remains stable off medications. on metoprolol 50mg daily for years switched to atenolol. She lost 50 pounds a few years ago. She has been monitoring her BP at home off the medication and it has been 120s/70s-80. No headaches, chest pain. MS: Following with Dr Alves. On Glatopa. No flares Follows with research dietitian s/p hysterescopy for poly/fibroid with line analyst. elevated LFTs in setting of norethindrone. Referred to CHILDCARE WORKER. She will call to make an appt Mammo ordered-she will call to make an appt Colon cancer screening UTD ROS CONSTITUTIONAL: Denies weight loss, fever and chills. HEENT: Denies changes in vision and hearing. RESPIRATORY: Denies SOB and cough. CV: Denies palpitations and CP GI: Denies abdominal pain, nausea, vomiting and diarrhea. : Denies dysuria and urinary frequency. MSK: Denies new myalgia and joint pain. SKIN: Denies rash and pruritus. NEUROLOGICAL: Denies headache PSYCHIATRIC: Denies recent changes in mood. PHYSICAL EXAM: GENERAL: Alert and oriented x 3. NAD EYES: EOMI. Anicteric. HENT: Moist mucous membranes. No scleral icterus. No cervical lymphadenopathy. LUNGS: Clear to auscultation bilaterally. CARDIOVASCULAR: Regular rate and rhythm. No murmur. No JVD. ABDOMEN: Soft, non-tender +bs EXTREMITIES: No edema. Non-tender. SKIN: No rashes or lesions. Warm. NEUROLOGIC: No focal neurological deficits. CN II-XII grossly intact PSYCHIATRIC: Cooperative. 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 Current occupational exposures/hazards: No Cognitive needs: No Hearing needs: No Vision needs: No Questionnaire Thrive Questionnaire Date Thrive assessed: 05/30/24 I am a: Patient What is your living situation today?: I have a steady place to live Within the past 12 months, did the food you bought not last and you didn't have the money to get more?: Never true Within the past 12 months, did you worry whether your food would run out before you got money to buy more?: Never true Do you have trouble paying for medicines?: No Do you have trouble getting transportation to medical appointments?: No Do you have trouble paying your heating and electricity bill?: No Do you have trouble taking care of your child, family member or friend?: No Do you have trouble with day-to-day activities such as bathing, preparing meals, shopping, managing finances, etc.?: No Are you currently unemployed and looking for a job?: No Are you interested in more education?: I choose not to answer this question Please select the resources that you would like help with: None Currently or been in a relationship where the following occur: No concerns reported THRIVE Score: 0 AUDIT C Alcohol Use Questionnaire (AUDIT-C) 1. How often do you have a drink containing alcohol?: 2-4 times a month (once a week) 2. How many drinks containing alcohol do you have on a typical day when you are drinking?: 1 or 2 3. How often do you have six or more drinks on one occasion?: Never Total Score: 2 TITUS-7 AMB Questionnaire TITUS-7 Date TITUS - 7 assessed: 06/04/24 Source: Developed by Drs. Hair Vitale, Meri Seo, Nathan Meza and colleagues, with an educational gris from [employer]. Physical exam (Primary Care) Vital Signs: Last Vital Signs Temp 97.8 F 09/09/24 09:41 Pulse 61 09/09/24 09:41 Resp 14 09/09/24 09:41 BP 124/82 09/09/24 09:41 Pulse Ox 98 09/09/24 09:41 Oxygen Delivery Method Room Air 09/09/24 09:41 BMI result Body Mass Index 32.6 Tobacco/Smoking Status: Tobacco use Status Tobacco use date assessed 09/09/24 09/09/24 09:46 Patient Tobacco Use Status Never used Tobacco 09/09/24 09:46 e-Cigarette/Vaping Use Never Used 09/09/24 09:46 Thrive Assessment: Date of Thrive Assessment Date Thrive assessed 05/30/24 09/09/24 09:46 Currently or been in a relationship where the following occur: No concerns reported Coding Level of Care Code Est Pt Level 3 (06425) Complex EM visit Add On G2211 Diagnoses Primary hypertension I10 Hypertension type: primary hypertension Low vitamin D level R79.89 Elevated glucose R73.09 Assessment & Plan Assessment & Plan (1) Hypertension: Code(s): I10 - Essential (primary) hypertension Category: Medical Qualifiers: Hypertension type: primary hypertension Qualified Code(s): I10 - Essential (primary) hypertension (2) Low vitamin D level: Code(s): R79.89 - Other specified abnormal findings of blood chemistry Category: Medical (3) Elevated glucose: Code(s): R73.09 - Other abnormal glucose Category: Medical Plan 58 year old female presenting for follow up MS is stable. She will continue current medication and follow up with neurology HTN is now controlled off of medications Vitamin D ordered Orders: Orders Vitamin D 25-OH (D2 and D3) 09/09/24 R79.89 - Other specified abnormal findings of blood chemistry
[2024-09-09 09:41] VITALS: BP 124/82; PULSE 61; RESP 14; TEMP 36.6; O2SAT 98; BMI 32.6
--- OUTSIDE RECORDS SUMMARY | 2024-09-09 10:11 | XMS_ITS | Clinical Summary ---
Author Organization [facility] Address [address] [id number] Care Team Providers Care Telecommunications Field Engineer Name Role Phone Moe Sanches MD Primary Care Provider [phone] Moe Sanches MD Unavailable [phone] Medications Glatiramer Acetate (Copaxone) 20 MG/ML Solution [...] 0 09/29/2009 Overview (05/07/2023): Description: mutation Immunizations Immunization Administration Dates Next Due Td (adult), adsorbed [...] (Shingrix) (1 of 2) 09/23/2017 COVID-19 Vaccine ( - 2023-2 5 season) 2023 Influenza (Season Ended) 2024 HPV Vaccine Aged Out No longer eligi [...] age to complete this topic Care Teams Telecommunications Field Engineer Relationship Specialty Start Date End Date Moe Sanches MD [address] [place] [address] PCP - General 11/07/22 Moe Sanches MD [address] [place] [address] PCP - Backup PCP Internal Medicine 05/04/23
== END 2024-09-09 10:05 | disposition home or self-care (01) ==
LOC: HO.HMCFM 09:35
PROVIDERS: PCP Internal Medicine; Visit Provider Internal Medicine
DX: I10 Essential (primary) hypertension (principal); R79.89 Other specified abnormal findings of blood chemistry; R73.09 Other abnormal glucose

== ENCOUNTER 2024-09-09 10:02 | Outpatient (REF) | payer OTHER, SELFPAY ==
[2024-09-14 17:33] LABS: Vitamin D 25-OH, D2 <4 ng/mL; Vitamin D 25-OH, D3 51 ng/mL; Vitamin D 25-OH, Total 51 ng/mL (30-100)
== END 2024-09-09 10:03 | disposition home or self-care (01) ==
LOC: HO.WFDLDS 10:02
PROVIDERS: Visit Provider Internal Medicine
DX: E55.9 Vitamin D deficiency, unspecified (principal); R79.89 Other specified abnormal findings of blood chemistry
CPT/HCPCS: 36415; 82306

== ENCOUNTER 2025-03-17 15:57 | Outpatient (AMB) | payer OTHER, SELFPAY ==
[2025-03-17 16:05] VITALS: BP 134/84; PULSE 84; RESP 14; O2SAT 97; BMI 24.1
--- NOTE | 2025-03-17 16:05 | A.OFFPC_ITS ---
Vital Signs 03/17/25 16:05 Height 6 ft 6.93 in Weight 213 lb 6 oz BMI 24.1 BP 134/84 Blood Pressure Location Lt brachial Position Sitting Respiration 14 Pulse 84 Pulse Source Pulse Oximeter Pulse Oximetry (%) 97 Oxygen Delivery Method Room Air Intake Visit Reasons: CPE Intake Note: Physical. Torn ACL left knee Screwdown Operator Required: No Allergies No Known Allergies Allergy (Verified 03/17/25 16:08) Tobacco use date assessed: 09/09/24 Dental Screening Dental Screen Date: 06/04/24 HPI HPI Comments History of Present Illness Details The patient is a 59 year old female with past medical history of hypertension, MS, elevated glucose presenting for CPE CV: Remains stable off medications. on metoprolol 50mg daily for years switched to atenolol. She lost 50 pounds a few years ago some moderate weight gain recently in setting of knee injury. She has been monitoring her BP at home off the medication and it has been 120s/70s-80. No headaches, chest pain. MS: Following with Dr Alves. On Glatopa. No flares Tore her left ACL about 2 months ago-beginning of January fell in high heels, a few days later twisted her left knee. 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 elevated LFTs in setting of norethindrone. Referred to ADVERTISING INSERTER. She will call to make an appt Mammo ordered-she will call to make an appt Colonoscopy 2020 ROS CONSTITUTIONAL: Denies weight loss, fever and chills. HEENT: Denies changes in vision and hearing. RESPIRATORY: Denies SOB and cough. CV: Denies palpitations and CP GI: Denies abdominal pain, nausea, vomiting and diarrhea. : Denies dysuria and urinary frequency. MSK: Denies new myalgia and joint pain. SKIN: Denies rash and pruritus. NEUROLOGICAL: Denies headache PSYCHIATRIC: Denies recent changes in mood. PHYSICAL EXAM: GENERAL: Alert and oriented x 3. NAD EYES: EOMI. Anicteric. HENT: Moist mucous membranes. No scleral icterus. No cervical lymphadenopathy. LUNGS: Clear to auscultation bilaterally. CARDIOVASCULAR: Regular rate and rhythm. No murmur. No JVD. ABDOMEN: Soft, non-tender +bs EXTREMITIES: No edema. Non-tender. SKIN: No rashes or lesions. Warm. NEUROLOGIC: No focal neurological deficits. CN II-XII grossly intact PSYCHIATRIC: Cooperative. 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 [employer] Current occupational exposures/hazards: No Cognitive needs: No Hearing needs: No Vision needs: No Questionnaire Thrive Questionnaire Date Thrive assessed: 05/30/24 I am a: Patient What is your living situation today?: I have a steady place to live Within the past 12 months, did the food you bought not last and you didn't have the money to get more?: Never true Within the past 12 months, did you worry whether your food would run out before you got money to buy more?: Never true Do you have trouble paying for medicines?: No Do you have trouble getting transportation to medical appointments?: No Do you have trouble paying your heating and electricity bill?: No Do you have trouble taking care of your child, family member or friend?: No Do you have trouble with day-to-day activities such as bathing, preparing meals, shopping, managing finances, etc.?: No Are you currently unemployed and looking for a job?: No Are you interested in more education?: I choose not to answer this question Please select the resources that you would like help with: None Currently or been in a relationship where the following occur: No concerns reported THRIVE Score: 0 AUDIT C Alcohol Use Questionnaire (AUDIT-C) 1. How often do you have a drink containing alcohol?: Monthly or less 2. How many drinks containing alcohol do you have on a typical day when you are drinking?: 1 or 2 3. How often do you have six or more drinks on one occasion?: Never Total Score: 1 TITUS-7 AMB Questionnaire TITUS-7 Date TITUS - 7 assessed: 06/04/24 Source: Developed by DrsToney Vitale, Meri Seo, Nathan Meza and colleagues, with an educational gris from [employer] [place]. Physical exam (Primary Care) Vital Signs: Last Vital Signs Pulse 84 03/17/25 16:05 Resp 14 03/17/25 16:05 BP 134/84 03/17/25 16:05 Pulse Ox 97 03/17/25 16:05 Oxygen Delivery Method Room Air 03/17/25 16:05 BMI result Body Mass Index 24.1 Tobacco/Smoking Status: Tobacco use Status Tobacco use date assessed 09/09/24 03/17/25 16:10 Patient Tobacco Use Status Never used Tobacco 03/17/25 16:10 e-Cigarette/Vaping Use Never Used 03/17/25 16:10 Thrive Assessment: Date of Thrive Assessment Date Thrive assessed 05/30/24 03/17/25 16:10 Currently or been in a relationship where the following occur: No concerns reported Coding Level of Care Code Est Pt Prev Care 40-64y(47632) Diagnoses Physical exam Z00.00 Rupture of anterior cruciate ligament of left knee, subsequent encounter S83.512D Encounter type: subsequent encounter Laterality: left Elevated glucose R73.09 Screening for hyperlipidemia Z13.220 Primary hypertension I10 Hypertension type: primary hypertension Assessment & Plan Assessment & Plan (1) Physical exam: Code(s): Z00.00 - Encounter for general adult medical examination without abnormal findings (2) ACL tear: Code(s): S83.519A - Sprain of anterior cruciate ligament of unspecified knee, initial encounter Category: Medical Qualifiers: Encounter type: subsequent encounter Laterality: left Qualified Code(s): S83.512D - Sprain of anterior cruciate ligament of left knee, subsequent encounter (3) Elevated glucose: Code(s): R73.09 - Other abnormal glucose Category: Medical (4) Screening for hyperlipidemia: Code(s): Z13.220 - Encounter for screening for lipoid disorders Category: Medical (5) Hypertension: Code(s): I10 - Essential (primary) hypertension Category: Medical Qualifiers: Hypertension type: primary hypertension Qualified Code(s): I10 - Essential (primary) hypertension Plan CPE Interval history reviewed Preventive measures for age discussed Continues ortho for left knee injury. Limiting mobility. Tramadol prn. NSAIDs are hurting her stomach MS is stable on medications Mammo is overdue she will schedule Orders: Orders Complete Blood Count Auto Diff 03/17/25 I10 - Essential (primary) hypertension, R73.09 - Other abnormal glucose, R79.89 - Other specified abnormal findings of blood chemistry, Z13.220 - Encounter for screening for lipoid disorders, Z13.228 - Encounter for screening for other metabolic disorders TSH reflex Free T4 03/17/25 I10 - Essential (primary) hypertension, R73.09 - Other abnormal glucose, R79.89 - Other specified abnormal findings of blood chemistry, Z13.220 - Encounter for screening for lipoid disorders, Z13.228 - Encounter for screening for other metabolic disorders Comprehensive Met. Panel 03/17/25 I10 - Essential (primary) hypertension, R73.09 - Other abnormal glucose, R79.89 - Other specified abnormal findings of blood chemistry, Z13.220 - Encounter for screening for lipoid disorders, Z13.228 - Encounter for screening for other metabolic disorders Lipid Panel 03/17/25 I10 - Essential (primary) hypertension, R73.09 - Other abnormal glucose, R79.89 - Other specified abnormal findings of blood chemistry, Z13.220 - Encounter for screening for lipoid disorders, Z13.228 - Encounter for screening for other metabolic disorders Hemoglobin A1c 03/17/25 I10 - Essential (primary) hypertension, R73.09 - Other abnormal glucose, R79.89 - Other specified abnormal findings of blood chemistry, Z13.220 - Encounter for screening for lipoid disorders, Z13.228 - Encounter for screening for other metabolic disorders Medications: New tramadol 50 mg PO TID PRN 21 tabs 0RF pain 7 days S83.519A - Sprain of anterior cruciate ligament of unspecified knee, initial encounter
--- OUTSIDE RECORDS SUMMARY | 2025-03-17 22:20 | XMS_ITS | Continuity of Care Document ---
Author Organization [facility], [facility] [address] Address [address] [place] [address] Care Team Providers Care Wood Box Maker Name Role Phone CORY HEBERT Primary Care Provider [phone] Assessment No assessment recorded. Plan of Treatment Reminders Order Date Submit Date Provider Last Modified By Organization Details Last Modified Time Details Appointments RECHECK 15 2024 09:30A M Lc Salcido PA-C Not available Not available Not available Lab None recorded . Referral physical therapis t referral - left acl tear, non-surg ical rehab gait training 2024 025 [email or web address] Not available 01/29/2025 13:51:11 Procedures None recorded . Surgeries None recorded . Imaging None recorded . Medication Orders None recorded . Patient TargetsNo targets recorded. Patient InstructionsNo instructions recorded. Reason for Referral Physical Therapist Referral for Rupture of anterior cruciate ligament of left knee left acl tear, non-surgical rehabgait training Referring Physician: Lc Salcido, Orthopedic Surgery, Encounter Date: 01/22/2025 Results Created Date Observation Date Name Description Value Unit Range Abnormal Flag Note LastModifiedBy Organization Detail LastModifiedTime 01/15/2001/14/2025 XR, knee, 4 or more view [email or web address] ?Encry pted=s hAaTro YD8dLq bEUv6g %2BXZw aYqtaq 0bqfl% 2Fg9IQ a4ajBk vP9nXo QUaueC m3YtLR FvZlgJ JJ8mAn HZtai3 [id number] AC0Klb XWHUqW vKiQtr MwF INTERFACE [facility] [address], [place], [address], 01/14/2025 10:06:45 01/15/20 25 01/14/2025 XR, knee, 4 or more view [email or web address] ?Encry pted=s hAaTro YD8dLq bEUv6g %2BXZw aYqtaq 0bqfl% 2Fg9IQ a4ajBk vP9nXo QUaueC m3YtLR FvZlgJ JJ8mAn HZtai3 5i6588 AC0Klb XWHUqW vKiQtr MwF INTERFACE [facility] [address], [place], [address], 01/14/2025 10:06:47 01/17/20 25 01/15/2025 MRI, knee, w/o contr ast [facility] Access ion Number : [id number] Patien t Name: Mildred Yuen Record Number : [id number] Date of : 1965 Date of Exam: 2024 Referr ing Physic juan miguel: [facility] [address], [address] [place] [address] Exam: MR Knee (C-) CPT 01296 - Left Room Descri ption: [facility] 3.0T Histor y: A bucket -handl e tear of the medial menisc us, chroni c injury , initia l encoun ter, questi on bucket -handl e medial menisc al tear versus tibial fractu re. The patien t report s modera te to severe consta nt left knee pain for one week after a twisti ng injury , diffus e swelli ng. Techni que: MRI of the left knee was perfor med withou t intrav enous contra st. Compar kaykay: None. Findin gs: Joint effusi on: Small joint effusi on with mild synovi tis is presen t. There is a medial patell ar plica. Hoffa' s fat pad is unrema rkable . There is a lobula jett Templeton' s cyst with mild edema in the adjace nt soft tissue s, sugges ting partia l ruptur e. Menisc i: Intram enisca l degene ration is seen in the case operator ior third medial menisc us focal signal extend ing to the superi or and inferi or articu lar surfac es within the case operator ior third sugges ting superi mposed tear. Mild contou r irregu larity of the free margin of the body of the latera l menisc us with focal signal extend ing to the superi or articu lar surfac e in the body and anteri or third and body juncti on. Tendon s and ligame nts: There is a tear in the proxim al aspect of the ACL with small portio n of the anteri or fibers appear ing intact . The PCL appear s intact . Normal signal intens ity in the medial collat eral ligame nt which appear s intact . There is lobula jett fluid signal which is seen betwee n the mid to distal MCL and the adjace nt tibia, appear ing contig uous with fluid extend ing over the semime mbrano ngozi attach ment as well as locula jett fluid signal superf icial to the MCL, deep to the pes anseri ne tendon s, which may reflec t bursit is. The fibula r collat eral ligame nt and biceps femori s tendon appear intact . The ilioti bial band is unrema rkable . The extens or mechan ism appear s normal . Articu lar cartil age: Mild irregu lar chondr al thinni ng is seen in the weight bearin g portio ns of the medial and latera l compar tments and inferi hilario in the medial trochl ea. There is hetero geneou s signal in the articu lar cartil age overly ing the patell a withou t discre te chondr al defect . Bone: The bone and bone marrow are normal . Impres javan: 1. Partia l tear of the proxim al ACL with appare nt small amount of fibers along the anteri or aspect appear ing intact . 2. Degene ration in the medial menisc us with findin gs concer lavell for superi mposed tear in the case operator ior third. 3. Free margin tear in the body of the latera l menisc us with additi onal vertic ally orient ed tears in the case operator ior third as above. 4. Templeton' s cyst as well as additi onal locula jett fluid signal extend ing over the semime mbrano ngozi tendon distal ly as well as deep to the pes anseri ne tendon s and deep to the medial collat eral ligame nt, sugges ting bursit is. 5. Mild tricom partme ntal degene rative change . WSN: [id number] Orderi ng Physic juan miguel: [facility] onical ly Signed By: [facility] [address], [place], [address], 01/16/2025 09:21:35 Result Notes None recorded. Medical Equipment None Reported. Allergies No known drug allergies Medications Name Sig Start Date Stop Date Status Note LastModified by Organization Details LastModified Time atenolol 50 mg tablet TAKE 1 TABLET BY MOUTH EVERY DAY active Not Available Not Available No t Available naproxen 500 mg tablet TAKE 1 TABLET BY MOUTH TWICE A DAY active Not Available Not Available No t Available Vitals Date Recorded Body height Body mass index (BMI) Body weight Provider Name and Address Organization Details Last Updated DateTime 01/22/2025 170.18 cm 32.3 kg/m2 59974.03 g Pao Cuevas [place] - [facility] 01/22/2025 13:43:55 Social History None recorded. Functional Status None recorded. Mental Status None recorded. Family History Nothing Reported. Medical History Condition Response Nerve Disorders Y Gynecological HistoryNo gynecological history recorded. Obstetrics History GPAL:G 0 P 0 0 0 0 Past Encounters Encounter ID Performer Location Encounter Start Date Encounter Closed Date Diagnosis/Indication Diagnosis SNOMED-CT Code Diagnosis ICD10 Code Diagnosis IMO Codes Diagnosis Note [id number] Lc Salcido PA-C [facility] [place] [address] [place] [address] 01/14/2025 08:42:52 01/27/2025 08:05:22 Pain of left knee joint 6324465765 36003 M25.562 [id number] Gloria rothman tear of medial meniscus of knee 331540950 S83.212A 0281462 Tear of me dial meniscus of knee 536629340 S83.242A [id number] [facility] [address] [place] [address] 01/22/2025 13:36:24 01/29/2025 13:51:11 Rupture of anterior cruciate ligament of left knee 1783535795 6709356 S83.512D 79239284 Instabilit y of joint of left knee 0867697667 533024 M25.362 [id number] Health Concerns Section Related Observation LastModified by Organization Detai ls LastModified Time None Recorded Concern Status LastModified by Organization Details LastModified Time None Recorded Payers Encounter Date Sequence Insurance Name Policy Number Policy Bradford Covered Member ID Bradford Member ID Guarantor Name 01/22/2025 1 [facility] [id number] 1 Mildred Yuen [id number] Mildred Yuen Notes Date Note Type Note Provider Name and Address Organization Details Recorded Time 5 text/html I am seeing the patient today under the supervision of Dr. Harper who was available but who did not see the patient. HPI: This patient is a 59-year-old female who I saw in urgent care 1 week ago. She was unable to extend her knee or walk after a recent trauma and with suspicion for possible entrapped bucket-handle type meniscus tear she was sent for MRI imaging. MRI was obtained and is available for my review today. Patient reports that her symptoms have subsided significantly. There was 1 episode where she felt as though something shifted in her knee and unlocked and she had improved motion and was able to put weight on it at that point. She had a recent subsequent pop and increase symptoms. She does note swelling and stiffness. She is wearing an elastic knee sleeve which is tight fitting and possibly constricting as she is getting edema below the brace. Past family, medical, social history and review of systems has been reviewed, updated and signed by me and is located in the patient's chart. Examination: The patient is well appearing and in no apparent distress. Alert and oriented x3. Gait is symmetric. Patient using a single crutch for assistance weightbearing fully. Minimal antalgia. There is a joint effusion. Some fullness in the popliteal space. Tiffany testing is positive 2+. She continues to have a slight flexion contracture of 2 to 3 degrees comparative to the opposite side. MRI imaging of the left knee recently obtained and independently reviewed today at [facility]. Large joint effusion. Large popliteal cyst. ACL is partially to near complete tear of proximal end. Chronicity indeterminant. No significant evidence for major meniscal tear and there is no bucket-handle type tear. Official radiology report: 1. Partial tear of the proximal ACL with apparent small amount of fibers alongthe anterior aspect appearing intact. 2. Degeneration in the medial meniscus with findings concerning for superimposed tear in the posterior third. 3. Free margin tear in the body of the lateral meniscus with additionalvertically oriented tears in the posterior third as above. 4. Templeton's cyst as well as additional loculated fluid signal extending over thesemimembranosus tendon distally as well as deep to the pes anserine tendons anddeep to the medial collateral ligament, suggesting bursitis. 5. Mild tricompartmental degenerative change. Impression: Left knee pain and instability. Mild osteoarthritis. Large Templeton's cyst. Plan: Treatment options discussed with the patient. At this time I am recommending against surgical intervention. Depending on her knee instability she may ultimately require a stabilizing procedure with ACL reconstruction however recommendation is to trial nonsurgical care. I am recommending a knee brace for stability. She is prescribed an economy hinged knee brace for her ACL instability. This is fit and provided for her today weightbearing as tolerated and she will begin physical therapy which is prescribed. The patient is ambulatory, but has weakness and/or instability of their extremity which requires stabilization from this semi-rigid/rigid orthosis to improve their function. Verbal and written instructions for the use and application of this item were given. Patient was instructed that should the brace result in increased pain, decreased sensation, increased swelling or an overall worsening of their medical condition, to please contact our office immediately. Lc Salcido PA-C [address], [place], [address], [facility] - [facility] 01/22/2025 14:10:49 OBGyn Episode No OBEpisode recorded.
--- OUTSIDE RECORDS SUMMARY | 2025-03-17 22:20 | XMS_ITS | Clinical Summary ---
Author Organization [facility] Address [address] [id number] Care Team Providers Care Ball Machine Operator Name Role Phone Moe Sanches MD Primary Care Provider [phone] Moe Sanches MD Unavailable [phone] Medications Glatiramer Acetate (Copaxone) 20 MG/ML Solution [...] 75 04/13/2011 4:07 PM EST Temperature 36.4 C (97.5 F) 04/13/2011 4:07 PM EST Tympanic Respiratory Rate 20 04/13/2011 [...] of 2) 09/23/2017 COVID-19 Vaccine ( - 2024-2 6 season) 2024 Influenza (#1) 2024 RSV (1 - 1-dose 75+ series) 09/23/2042 HPV Vaccine (No Doses Required) Completed Hep A Aged Out No longer eligi ble based on patient's age to complete this topic Hib Aged Out No longer eligi ble based on patient's age to complete this topic Meningococcal ACWY Aged Out No longer eligible based on patient's age to complete this topic Care Teams Ball Machine Operator Relationship Specialty Start Date End Date Moe Sanches MD [address] [place] [address] PCP - General 11/07/22 Moe Sanches MD [address] [place] [address] PCP - Backup PCP Internal Medicine 05/04/23
--- OUTSIDE RECORDS SUMMARY | 2025-03-17 22:20 | XMS_ITS | Data Portability ---
Author Organization [facility] [employer] Address [address] [facility] [place] [address] Care Team Providers Care Target Network Analyst Name Role Phone CORY HEBERT Referring Provider CORY HEBERT Primary Care Provider Assessment Encounter Date Assessment Date Assessment LastModified [...] to consider going to the gym or lead trainer to learn some core exercises. She [...] to consider going to the gym or lead trainer to learn some core exercises. She [...] to consider going to the gym or lead trainer to learn some core exercises. She [...] needle EMG abnormalities is indicated. PLAN: Mildred Wilfrid October 24, 2022 Continue Copaxone shots daily for multiple sclerosis Stretch back before and after unusual physical activity or lifting heavy objects. Followup in 10 months, or earlier with new or concerning neurologic symptomatology mrmindy Not available 10/24/2022 08:16:26 10/03/2023 10/03/2023 IMPRESSION: [...] may be more convenient than shots. In [facility], most recently we have discussed ocrelizumab In detail and she had the same opinion; She again prefers Copaxone. this was December2021. PLAN: Mildred Yune October 03, 2023 Continue Copaxone shots daily for multiple sclerosis Stretch back before and after unusual physical activity or lifting heavy objects. Followup in 11 months, or earlier with new or concerning neurologic symptomatology mrossen Not available 10/03/2023 17:40:57 09/03/2024 09/03/2024 IMPRESSION: Mult iple sclerosis, no relapses recently. [...] may be more convenient than shots. In [place], most recently we have discussed ocrelizumab In detail and she had the same opinion; She again prefers Copaxone. this was December2021. PLAN: Mildred Yuen (shpak) September 03, 2024 Continue Copaxone shots daily for multiple sclerosis Stretch back before and after unusual physical activity or lifting heavy objects. Followup in 11 months, or earlier with new or concerning neurologic symptomatology mrossen Not available 09/03/2024 08:45:42 Plan of Treatment Reminders Order Date Submit Date Provider Last Modified By Organization Details Last Modified Time Details Appointments FOLLOW UP EXT 2025 08:30A M Frank Alves MD PhD Not available Not available Not available Lab None recorded. Referral None recorded. Procedures None recorded. Surgeries None recorded. Imaging None recorded. Medication Orders Glatopa 20 mg/mL subcutane ous syringe 2024 025 [facility], [facility] [place], [address], 09/03/2024 08:50:19 Glatopa 20 mg/mL subcutane ous syringe 2023 024 [facility], [place], [address], 10/03/2023 17:29:48 Glatopa 20 mg/mL subcutane ous syringe 2022 023 [facility], [facility], [address], 10/24/2022 08:17:09 Glatopa 20 mg/mL subcutane ous syringe 2020 021 [facility], [address] [place] [address], [address], 12/01/2020 09:19:21 Patient TargetsNo targets recorded. Patient [...] minutes dalila Not available 10/24/2022 08:26:05 10/03/2023 [id number] PREVIOUS DISCUSS IONS She has wondered about [...] to consider going to the gym or lead trainer to learn some core exercises. She [...] greater than 30 minutes dalila Not available 10/03/2023 17:40:37 09/03/2024 [id number] PREVIOUS DISCUSS IONS She has wondered about [...] to consider going to the gym or lead trainer to learn some core exercises. She [...] greater than 30 minutes mrossen Not available 09/03/2024 08:42:16 Reason for Referral None Reported. Procedures Surgical History Date Name Laterality Status Provider Name and Address Organization Details Recorded Time 09/03/2024 DATA REVIEW completed Frank Alves MD [address] [place], [place] [address], [address], [facility] 09/03/2024 08:42:16 10/03/2023 DATA REVIEW completed Frank Alves MD [address] [place] [address] [place], [address], [facility] 10/03/2023 17:22:48 10/24/2022 DATA REVIEW completed Frank Alves MD [address] [place], [place] [address], [address], [facility] 10/24/2022 08:08:15 12/02/2021 DATA REVIEW completed Frank Alves MD [address] [place] [address] [place], [address], [facility] 12/02/2021 08:43:57 12/01/2020 DATA REVIEW completed Frank Alves MD [address] [place] [address] [place], [address], [facility] 12/01/2020 09:08:32 Imaging Results None recorded. Procedure Notes None recorded. Medical Equipment None Reported. Medications Name Sig Start Date Stop Date Status Note LastModified by Organization Details LastModified Time Prescription - Prior Authorization Request active Not Available Not Available Not Available metoprolol succinate ER 50 mg tablet,extended release 24 hr TAKE 1 TABLET BY MOUTH EVERY DAY active Not Available Not Available No t Available cephalexin 500 mg capsule TAKE 1 CAPSULE BY MOUTH TWICE A DAY FOR 7 DAYS active Not Available Not Available No t Available norethindrone acetate 5 mg tablet TAKE 1 TABLET BY MOUTH TWICE A DAY active Not Available Not Available No t Available atenolol 50 mg tablet TAKE 1 TABLET BY MOUTH EVERY DAY active Not Available Not Available No t Available Glatopa 20 mg/mL subcutaneous syringe active Not Available Not Available Not Available Flowflex COVID-19 Antigen Home Test kit active Not Available Not Available Not Available Vitals Date Recorded Body height Body mass index (BMI) Body weight Provider Name and Address Organization Details Last Updated DateTime 08/10/2022 172.72 cm 5.5 kg/m2 39857.33 g Jane St[address] [facility] 08/11/2022 11:11:57 Social History None recorded. Functional Status None recorded. Mental Status None recorded. Family History Nothing Reported. Medical History No medical history recorded. Gynecological HistoryNo gynecological history recorded. Obstetrics History GPAL:G 0 P 0 0 0 0 Past Encounters Encounter ID Performer Location Encounter Start Date Encounter Closed Date Diagnosis/Indication Diagnosis SNOMED-CT Code Diagnosis ICD10 Code Diagnosis IMO Codes Diagnosis Note [id number] Frank Alves MD [address] [place] [address] 12/01/2020 08:51:13 12/01/2020 09:40:07 Multiple sclerosis 67325495 G35 [id number] Frank Alves MD [address] [place] [address] 12/02/2021 08:22:41 12/02/2021 09:45:46 Multiple sclerosis 32034665 G35 [id number] Frank Alves MD [address] [place] [address] 10/24/2022 08:01:07 10/24/2022 08:51:11 Multiple sclerosis 15290124 G35 [id number] Frank Alves MD [address] [place] [address] 10/03/2023 16:27:14 10/09/2023 10:44:24 Multiple sclerosis [id number] G35 [id number] Frank Alves MD [facility] [address] [place] [address] [place] [address] 09/03/2024 08:30:04 09/03/2024 09:27:58 Multiple sclerosis 56656757 G35 Health Concerns Section Related Observation LastModified by Organization Detai ls LastModified Time None Recorded Concern Status LastModified by Organization Details LastModified Time None Recorded Advance Directives Directive None Recorded Payers Insurance Date Sequence Insurance Name Policy Number Policy Bradford Covered Member ID Bradford Member ID Guarantor Name 09/08/2024 1 [employer] [place] [id number] Mildred Jagdeep K Szpak [id number] Mildred K Maurapak 08/11/2022 1 [facility] (HMO) [id number] Mildred K Szpak [id number] Mildred K Szpak 09/02/2024 1 [employer] (EPO) [id number] Mildred K Maurapak [id number] Mildred Jagdeep Szpak Notes Date Note Type Note Provider Name and Address Organization Details Recorded Time 12/01/2020 text/html The patient returns for follow up of her multiple sclerosis. [...] of back pain has not been bothering her s he has not noticed it in [...] climb up and a 1.5-hour descent of [employer] in [facility] without any ill effects on a recent family vacation. Her mood is good even in the context of the dan virus epidemic. 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 She went to the associate financial analyst and optic neuritiswas diagnosed. 3 days of [...] or new joint pain. Frank Alves MD [address] [place] [place] [address], [address], [facility] 12/01/2020 09:37:44 12/02/2021 text/html The patient returns for follow up of her multiple sclerosis. [...] of back pain has not been bothering her s he has not noticed it in recent times, including during her recent family vacation. This was more relaxing than the year before when they climbed [employer] in [facility], after which her back had no [...] when she walks. She went to the associate financial analyst and optic neuritiswas diagnosed. 3 days of [...] or new joint pain. Frank Alves MD [address] [place] [address], [address], [facility] 12/02/2021 09:04:49 10/24/2022 text/html The patient returns for follow up of her multiple sclerosis. [...] and her . 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 She likes being in the office at least part of the time are all she gets depressed. Since COVID pandemic situation has been over, she has returned to the office 3 to 5 days. 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 She went to the associate financial analyst and optic neuritiswas diagnosed. 3 days of [...] or new joint pain. Frank Alves MD [address] [place] [address] [place], [address], [facility] 10/24/2022 08:26:22 10/03/2023 text/html The patient returns for follow up of her multiple sclerosis. 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 She likes being in the office at least part of the time are all she gets depressed. Since COVID pandemic situation has been over, she has returned to the office 3 to 5 days. 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 She went to the associate financial analyst and optic neuritiswas diagnosed. 3 days of [...] or new joint pain. Frank Alves MD [address] [place] [address] [place], [address], [facility] 10/03/2023 17:41:10 09/03/2024 text/html The patient returns for follow up of her multiple sclerosis. She is unaccompanied. >>>>>>>>>>>>September 03, 2024Since October 03, 2023 Neurology follow-up encounter, she has continued without symptoms to suggest relapse of multiple sclerosis, or any recurrence of remote symptomatology that emerged from multiple sclerosis in the past. She has continued on Glatopa daily injection for multiple sclerosis disease modifying treatment t o reduce the likelihood of relapse. She has no side effects.For the third year, she has again lost some weight, she estimates a total of 60 pounds loss since she changed her lifestyle d iet and exercise (we reviewed 20 pounds year one, 30 pounds year to when likely 10 pounds over the last year). She would not mind losing even more weight but the returns on weight loss to date have been great in any case. She was off her blood pressure medication because of a supply issue and noted that blood pressure was not going up. She and primary care have decided to discontinue the blood pressure medicine, likely not needed as she has lost weight.She continues without a back pain which she attributes in part from the loss of weight.She has no new medications and no new medical conditions.Family life with and daughter is good but busy t aking her 16-year-old daughter where she needs to go. 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 Vitamin D has increased risk of being low in individuals with multiple sclerosis. As she has been inside a lot, she has started vitamin D supplementation on her own anyway. We discussed that vitamin D is fat-soluble. So theoretically, she could take too much. I have asked her to take this up with primary care. 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 She likes being in the office at least part of the time are all she gets depressed. Since COVID pandemic situation has been over, she has returned to the office 3 to 5 days. 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 She went to the associate financial analyst and optic neuritiswas diagnosed. 3 days of [...] or new joint pain. Frank Alves MD [address] [place], [place] [address], [address], [facility] 09/03/2024 09:03:50 OBGyn Episode No OBEpisode recorded.
--- OUTSIDE RECORDS SUMMARY | 2025-03-17 22:20 | XMS_ITS | Continuity of Care Document ---
Author Organization [facility], [facility] Address [address] [place] [address] Care Team Providers Care Reinsurance Accountant Name Role Phone ANUP CORY Primary Care Provider Assessment No assessment recorded. Plan of Treatment Reminders Order Date Submit Date Provider Last Modified By Organization Details Last Modified Time Details Appointments RECHECK 15 2024 09:30A M Lc Salcido PA-C Not available Not available Not available Lab None recorded . Referral None recorded . Procedures None recorded . Surgeries None recorded . Imaging XR, knee, 4 or more view - room 3, L knee 4v 2024 [facility], [address], [address], [place], [address], 01/27/2025 08:05:22 MRI, knee, w/o contrast - STAT left knee mri ?bucket handle MMT vs tibial fracture 2024 025 gregory [facility] ([facility]), [address], [place], [address], 01/27/2025 08:05:22 Medication Orders naproxen 500 mg tablet 2024 025 kelli [id number], [address] [facility], [place], [address], 01/14/2025 12:54:09 Patient TargetsNo targets recorded. Patient InstructionsNo instructions recorded. Reason for Referral None Reported. Results Created Date Observation Date Name Description Value Unit Range Abnormal Flag Note LastModifiedBy Organization Detail LastModifiedTime 01/15/2001/14/2025 XR, knee, 4 or more view [email or web address] ?Encry pted=s hAaTro YD8dLq bEUv6g %2BXZw aYqtaq 0bqfl% 2Fg9IQ a4ajBk vP9nXo QUaueC m3YtLR FvZlgJ JJ8mAn HZtai3 0n8744 AC0Klb XWHUqW vKiQtr MwF INTERFACE [facility] [address], [place], [address], 01/14/2025 10:06:45 01/15/20 25 01/14/2025 XR, knee, 4 or more view [email or web address] ?Encry pted=s hAaTro YD8dLq bEUv6g %2BXZw aYqtaq 0bqfl% 2Fg9IQ a4ajBk vP9nXo QUaueC m3YtLR FvZlgJ JJ8mAn HZtai3 4v4483 AC0Klb XWHUqW vKiQtr MwF INTERFACE [facility] [address], [place], [address], 01/14/2025 10:06:47 01/17/2001/15/2025 MRI, knee, w/o contr ast [facility] Access ion Number : [id number] Rupal t Name: Mildred Yuen Record Number : [id number] Date of : 1965 Date of Exam: 2024 Referr ing Physic juan miguel: [facility] [address], [address] [place] [address] Exam: MR Knee (C-) CPT 83486 - Left Room Descri ption: [facility] Verio 3.0T Histor y: A bucket -handl e [...] l degene ration is seen in the treating engineer helper ior third medial menisc us focal signal extend ing to the superi or and inferi or articu lar surfac es within the treating engineer helper ior third sugges ting superi mposed tear. [...] lavell for superi mposed tear in the treating engineer helper ior third. 3. Free margin tear in the body of the latera l menisc us with additi onal vertic ally orient ed tears in the treating engineer helper ior third as above. 4. Templeton' s cyst as well as additi onal locula jett fluid signal extend ing over the semime mbrano ngozi tendon distal ly as well as deep to the pes anseri ne tendon s and deep to the medial collat eral ligame nt, sugges ting bursit is. 5. Mild tricom partme ntal degene rative change . WSN: [id number] Orderi ng Physic juan miguel: [facility] Signed By: Bijal Schwartz ra, MD [facility] ([facility]) [address] [facility] [address], [place], [address], 01/16/2025 09:21:35 Result Notes Documentation Provider Name and Address Organization Details Recorded Time Xr, Knee, 4 Or More View : [email or web address]? Encrypted=cgNiEaxOU7iVxjN Uv6g%6PMWbtVahos6jjjp%2Fg 7DLq3ssUdlT8eEhUGlbhRo6Xq XHVlAafDRG0xOuUWpca34n292 3MB4BlfHQOMkEpTpHhkQyP Not Available [facility] 01/14/2025 10:06: 45 Xr, Knee, 4 Or More View : [email or web address]? Encrypted=ehQhVudTU6gJixT Uv6g%2AXGenFsoji0tgpm%2Fg 0LSz7kjOxmB0cQsIBsrlBr4Fd VJBzWbhBMP3iYkZGkbq89k654 5VI6BcdHBGPuJsSkKqrGcP Not Available [facility] 01/14/2025 10:06: 48 Medical Equipment None Reported. Allergies No known [...] and Address Organization Details Last Updated DateTime 01/14/2025 170.18 cm 32.3 kg/m2 87842.03 g Pao Cuevas [place] - [facility] 01/14/2025 09:48:40 Social History None recorded. Functional Status None recorded. Mental Status None recorded. Family History Nothing Reported. Medical History Condition Response Nerve Disorders Y Gynecological HistoryNo gynecological history recorded. Obstetrics History GPAL:G 0 P 0 0 0 0 Past Encounters Encounter ID Performer Location Encounter Start Date Encounter Closed Date Diagnosis/Indication Diagnosis SNOMED-CT Code Diagnosis ICD10 Code Diagnosis IMO Codes Diagnosis Note [id number] Lc Salcido PA-C [facility] [address] [place] [id number] 01/14/2025 08:42:52 01/27/2025 08:05:22 Pain of left knee joint 7311775914 27126 M25.562 [id number] Gloria rothman tear of medial meniscus of knee 140458019 S83.212A 0882403 Tear of me dial meniscus of knee 046362308 S83.242A [id number] Health Concerns Section Related Observation LastModified by Organization Detai ls LastModified Time None Recorded Concern Status LastModified by Organization Details LastModified Time None Recorded Payers Encounter Date Sequence Insurance Name Policy Number Policy Bradford Covered Member ID Bradford Member ID Guarantor Name 01/14/[address] [place] [address] [place] [place] [id number] Mildred Yuen [id number] Mildred Yuen Notes Date Note Type Note Provider Name and Address Organization Details Recorded Time 01/14/2025 text/html I am seeing the patient today under the supervision of Dr. Medrano who was available but who did not see the patient. 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 Presents to our orthopedic urgent care clinic at this time for evaluation of a new injury to her left knee. About a week ago she fell injuring her knee but was able to still walk. Subsequently on 01/08/2025 several days after initial fall she twisted her knee going up stairs and felt something pop and has had severe pain and inability to walk or weight-bear. Arrives today by wheelchair. Patient reports a remote history of skiing injury with instability and probable ACL tear several years ago. Past Medical/Surgical History/Meds/Allergi es reviewed and charted Physical Examination: The patient is well appearing and in no apparent distress. Alert and oriented x3. Gait is symmetric. afebrile, vital signs stable, in no apparent distress, oriented to person/place/time. Pain Rated: 10/10 Gait unable to assess as patient is unable to bear weight on the left side. Skin: intact without erythema. Orthopedic Knee Exam: Left knee lacks 10 to 15 degrees of terminal extension and patient unable to fully extend. There is exquisite tenderness to palpation medial joint line and severe pain reproduced with rotational maneuvers. Tiffany testing does show some laxity 2+. Peripheral, vascular, lymphatic examination, skin, neurological, coordination, reflexes, sensation are within normal limits. Radiographs: 4 views of the left knee including standing AP, standing Jacobs, lateral and sunrise/merchant patella views were obtained. These are notable for upright radiographs but patient essentially not weightbearing. Overall there is no significant arthritic changes and well-preserved radiographic exam. Well-preserved alignment.. Impression: Acute bucket-handle medial meniscus tear left knee Plan: Patient has a history of knee instability from a previous ACL tear. That puts her at higher risk of developing meniscal pathology. I suspect that she has suffered a torn meniscus with likely bucketed and meniscal fragment. Recommendation is nonweightbearing. Prescribed crutches. She will use oral medication including Tylenol and is prescribed naproxen 500 mg twice daily. Recommended stat MRI imaging of the left knee to assess for bucket-handle meniscus tear. Recheck in 1 week for MRI review and follow-up. Medical Practice speech recognition car sales representative software was used to create portions of this document. An attempt at proofreading has been made to minimize errors. Please call for corrections. Lc Salcido PA-C [address], [place], [address], [facility] 01/14/2025 10:31:54 OBGyn Episode No OBEpisode recorded.
--- OUTSIDE RECORDS SUMMARY | 2025-03-17 22:20 | XMS_ITS | Data Portability ---
Author Organization [facility], [facility] Address [address] [place] [address] Care Team Providers Care Record Press Supervisor Name Role Phone ANUP CORY Primary Care [...] - room 3, L knee 4v 2024 025 gregory [facility], [address], [place], [address], 01/27/2025 08:05:22 MRI, knee, w/o contrast - STAT left knee mri ?bucket handle MMT vs tibial fracture 2024 025 gregory [facility] ([facility]), [address], [place], [address], 01/27/2025 08:05:22 Medication Orders naproxen 500 mg tablet 2024 025 [id number], [address] [facility] [place], [address], 01/14/2025 12:54:09 Patient TargetsNo targets recorded. Patient [...] a4ajBk vP9nXo QUaueC m3YtLR FvZlgJ JJ8mAn HZtai3 8v5507 AC0Klb XWHUqW vKiQtr MwF INTERFACE [facility] [address] [facility] [address], [place], [address], 01/14/2025 10:06:45 01/15/2001/14/2025 XR, knee, 4 or more view http:/ [email or web address] ?Encry pted=s hAaTro YD8dLq bEUv6g %2BXZw aYqtaq 0bqfl% 2Fg9IQ a4ajBk vP9nXo QUaueC m3YtLR FvZlgJ JJ8mAn HZtai3 2b7509 AC0Klb XWHUqW vKiQtr MwF INTERFACE [facility] [address] [facility] [address], [place], [address], 01/14/2025 10:06:47 01/17/2001/15/2025 MRI, knee, w/o contr ast [facility] Access ion Number : [id number] Rupal spivey Name: Mildred Yuena l Record Number : [id number] Date of : 1965 Date of Exam: 2024 Referr ing Physic juan miguel: Emre smith, [facility] [address], [address] [place] [address] Exam: MR Knee (C-) CPT 59177 - Left Room Descri ption: [facility] 3.0T Histor y: A bucket [...] l degene ration is seen in the wood crew supervisor ior third medial menisc us focal signal extend ing to the superi or and inferi or articu lar surfac es within the wood crew supervisor ior third sugges ting superi mposed tear. [...] lavell for superi mposed tear in the wood crew supervisor ior third. 3. Free margin tear in the body of the latera l menisc us with additi onal vertic ally orient ed tears in the wood crew supervisor ior third as above. 4. Templeton' s cyst as well as additi onal locula jett fluid signal extend ing over the semime mbrano ngozi tendon distal ly as well as deep to the pes anseri ne tendon s and deep to the medial collat eral ligame nt, sugges ting bursit is. 5. Mild tricom partme ntal degene rative change . WSN: [id number] Orderi ng Physic juan miguel: Lc Gamboa Electr onical ly Signed By: Bijal casillas [facility] ([facility]) [address], [place], [address], 01/16/2025 09:21:35 Result Notes Documentation Provider Name and Address Organization Details Recorded Time Xr, Knee, 4 Or More View : [email or web address] ncrypted=crUiNmsUM8fVuyQCj 6g%6FQFfpLslgi1ydfn%2Fg9IQ b1bqSenZ0yHsRVvblRq7NtFPTi VsqFFX8mRfUVlsm38b2980LZ2E lbXWHUqWvKiQtrMwF Not Available [facility] 01/14/2025 10:06:45 Xr, Knee, 4 Or More View : [email or web address] ncrypted=heNqCsnBH7dKnmDOv 6g%4YHUinSucfv7vfve%2Fg9IQ h9kxEtaF5iUgWOfluBg9OaMXGd DpdIJV2aMzFXgrl36j4604MF2N lbXWHUqWvKiQtrMwF Not Available [facility] 01/14/2025 10:06:48 Mri, Knee, W/o Contrast : [facility] Accession Number: [id number] Patient Name: Mildred Yuen Date of : 1965 Date of Exam: 01-15-2025 Referring Physician: Lc Salcido [facility] ([facility]) [address] [facility], [address] [place] [address] Exam: MR Knee (C-) CPT 20853 - Left Room Description: [facility] 3.0T History: A bucket-handle tear of the medial meniscus, chronic injury, initial encounter, question bucket-handle medial meniscal tear versus tibial fracture. The patient reports moderate to severe constant left knee pain for one week after a twisting injury, diffuse swelling. Technique: MRI of the left knee was performed without intravenous contrast. Comparison: None. Findings: Joint effusion: Small joint effusion with mild synovitis is present. There is a medial patellar plica. Hoffa's fat pad is unremarkable. There is a lobulated Templeton's cyst with mild edema in the adjacent soft tissues, suggesting partial rupture. Menisci: Intrameniscal degeneration is seen in the posterior third medial meniscus focal signal extending to the superior and inferior articular surfaces within the posterior third suggesting superimposed tear. Mild contour irregularity of the free margin of the body of the lateral meniscus with focal signal extending to the superior articular surface in the body and anterior third and body junction. Tendons and ligaments: There is a tear in the proximal aspect of the ACL with small portion of the anterior fibers appearing intact. The PCL appears intact. Normal signal intensity in the medial collateral ligament which appears intact. There is lobulated fluid signal which is seen between the mid to distal MCL and the adjacent tibia, appearing contiguous with fluid extending over the semimembranosus attachment as well as loculated fluid signal superficial to the MCL, deep to the pes anserine tendons, which may reflect bursitis. The fibular collateral ligament and biceps femoris tendon appear intact. The iliotibial band is unremarkable. The extensor mechanism appears normal. Articular cartilage: Mild irregular chondral thinning is seen in the weightbearing portions of the medial and lateral compartments and inferiorly in the medial trochlea. There is heterogeneous signal in the articular cartilage overlying the patella without discrete chondral defect. Bone: The bone and bone marrow are normal. Impression: 1. Partial tear of the proximal ACL with apparent small amount of fibers along the anterior aspect appearing intact. 2. Degeneration in the medial meniscus with findings concerning for superimposed tear in the posterior third. 3. Free margin tear in the body of the lateral meniscus with additional vertically oriented tears in the posterior third as above. 4. Templeton's cyst as well as additional loculated fluid signal extending over the semimembranosus tendon distally as well as deep to the pes anserine tendons and deep to the medial collateral ligament, suggesting bursitis. 5. Mild tricompartmental degenerative change. WSN: [id number] Ordering Physician: Lc Salcido Electronically Signed By: Bijal mitchell [facility] 01/16/2025 09:21:35 Medical Equipment None Reported. Allergies No known [...] Updated DateTime 01/14/2025 170.18 cm 32.3 kg/m2 47846.03 g Pao Cuevas [facility] 01/14/2025 09:48:40 Date Recorded Body height Body mass index (BMI) Body weight Provider Name and Address Organization Details Last Updated DateTime 01/22/2025 170.18 cm 32.3 kg/m2 83326.03 g Pao Cuevas [place] - [facility] 01/22/2025 13:43:55 Social History None recorded. Functional Status None recorded. Mental Status None recorded. Family History Nothing Reported. Medical History Condition Response Nerve Disorders Y Gynecological HistoryNo gynecological history recorded. Obstetrics History GPAL:G 0 P 0 0 0 0 Past Encounters Encounter ID Performer Location Encounter Start Date Encounter Closed Date Diagnosis/Indication Diagnosis SNOMED-CT Code Diagnosis ICD10 Code Diagnosis IMO Codes Diagnosis Note [id number] [facility] [place] [address] [address] [place] [address] 01/14/2025 08:42:52 01/27/2025 08:05:22 Pain of left knee joint 5710083297 87044 M25.562 [id number] Bucket grady dle tear of medial meniscus of knee 608671554 S83.212A 3116163 Tear of me dial meniscus of knee 434204753 S83.242A [id number] [facility] [address] [place] [place] [address] 01/22/2025 13:36:24 01/29/2025 13:51:11 Rupture of anterior cruciate ligament of left knee 1008933947 2665616 S83.512D 17892643 Instabilit y of joint of left knee 1769014456 061384 M25.362 [id number] Health Concerns Section Related Observation LastModified by Organization Detai ls LastModified Time None Recorded Concern Status LastModified by Organization Details LastModified Time None Recorded Advance Directives Directive None Recorded Payers Insurance Date Sequence Insurance Name Policy Number Policy Bradford Covered Member ID Bradford Member ID Guarantor Name 03/17/2025 1 [facility] [id number] Mildred Yuen [id number] Mildred Yuen Notes Date Note Type Note Provider Name and Address Organization Details Recorded Time 5 text/html I am seeing the patient today under the supervision of Dr. Medrano who was available but who did not see the patient. 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 Presents to our orthopedic urgent care clinic [...] ACL tear several years ago. Past Medical/Surgical History/Meds/Allergies reviewed and charted Physical Examination: The patient [...] review and follow-up. Medical Practice speech recognition beekeeper software was used to create portions of this document. An attempt at proofreading has been made to minimize errors. Please call for corrections. Lc Salcido PA-C [address] [place] [address] [address] [facility], [place], [address], [facility] - [facility] 01/14/2025 10:31:54 5 text/html I am seeing the patient [...] recently obtained and independently reviewed today at [facility]. Large joint effusion. Large popliteal cyst. ACL [...] our office immediately. Lc Salcido PA-C [address] [facility], [place], [address], [facility] - [facility] 01/22/2025 14:10:49 OBGyn Episode No OBEpisode recorded.
== END 2025-03-17 16:36 | disposition home or self-care (01) ==
LOC: HO.HMCFM 15:57
PROVIDERS: PCP Internal Medicine; Visit Provider Internal Medicine
DX: Z00.00 Encounter for general adult medical examination without abnormal findings (principal); S83.512D Sprain of anterior cruciate ligament of left knee, subsequent encounter; R73.09 Other abnormal glucose; Z13.220 Encounter for screening for lipoid disorders; I10 Essential (primary) hypertension